=== PATIENT | female | born 1985 ===

== ENCOUNTER 2018-03-19 13:14 | Outpatient (CLI) | payer OTHER ==
[2018-03-19] MEDS ORDERED: XYLOCAINE TOPICAL 4% TP ONE ×2 (13:30→13:39)
== END 2018-03-19 13:15 | disposition home or self-care (01) ==
LOC: WOUND 13:14
PROVIDERS: ATTEND Surgery
DX: T81.89XA Other complications of procedures, not elsewhere classified, initial encounter (principal); E03.9 Hypothyroidism, unspecified; Y83.8 Other surgical procedures as the cause of abnormal reaction of the patient, or of later complication, without mention of misadventure at the time of the procedure; Y92.89 Other specified places as the place of occurrence of the external cause
CPT/HCPCS: 11042; G0463; 99204

== ENCOUNTER 2018-03-26 12:47 | Outpatient (CLI) | payer OTHER ==
[2018-03-26] MEDS ORDERED: XYLOCAINE TOPICAL 4% TP ONE ×2 (13:05→13:15)
== END 2018-03-26 12:48 | disposition home or self-care (01) ==
LOC: WOUND 12:47
PROVIDERS: ATTEND Surgery
DX: T81.89XD Other complications of procedures, not elsewhere classified, subsequent encounter (principal); E03.9 Hypothyroidism, unspecified; Y83.8 Other surgical procedures as the cause of abnormal reaction of the patient, or of later complication, without mention of misadventure at the time of the procedure